=== PATIENT | female | born 1980 | race African-American/Black ===

== ENCOUNTER 2019-03-21 22:48 | Emergency (ER) | payer MEDICAID, OTHER ==
[~2019-03-21] VITALS: Ht 154.9 cm; Wt 91.8 kg
[2019-03-21 22:55] VITALS: Ht 154.9 cm; Wt 91.8 kg
[2019-03-21] MEDS ORDERED: KETOROLAC 30 MG INJ IM STA (23:29)
[2019-03-21] MEDS ORDERED: METHOCARBAMOL 750 MG TAB PO ONE (23:30)
[2019-03-22] MEDS ORDERED: CIPR500T4 PO (01:17)
[2019-03-22] MEDS ORDERED: ACET-141 PO (01:18)
--- NOTE | 2019-03-22 01:19 | ERD ---
ER Documentation Chief Complaint Chief Complaint lower abd/back pain x 1 day ROS All systems reviewed and are negative except as per history of present illness. Medications Home Meds Active Scripts Acetaminophen* (Acetaminophen*) 500 MG Extra Strength Tablet, 500 MG PO Q4H PRN for PAIN AND OR ELEVATED TEMP, #30 TAB Prov:JOSSELINE HERNANDEZ DO 03/22/19 Ciprofloxacin Hcl* (Ciprofloxacin Hcl*) 500 Mg Tablet, 500 MG PO BID for uti for 5 Days, #10 TAB Prov:JOSSELINE HERNANDEZ DO 03/22/19 Allergies Allergies: Coded Allergies: Penicillins (Verified Allergy, Unknown, sob, 03/21/19) PMhx/Soc Medical and Surgical Hx: pt denies Medical Hx, pt denies Surgical Hx Hx Alcohol Use: No Hx Substance Use: No Hx Tobacco Use: No Smoking Status: Never smoker Physical Exam Vitals Vital Signs Date Temp Pulse Resp B/P (MAP) Pulse Ox O2 O2 Flow FiO2 Time Delivery Rate 03/21/19 98.0 95 18 138/82 100 22:55 (100) Physical Exam Const: No acute distress Head: Atraumatic Eyes: Normal Conjunctiva ENT: Normal External Ears, Nose and Mouth. Neck: Full range of motion. No meningismus. Resp: Clear to auscultation bilaterally Cardio: Regular rate and rhythm, no murmurs Abd: Soft, non tender, non distended. Normal bowel sounds Skin: No petechiae or rashes Back: No midline or flank tenderness Ext: No cyanosis, or edema Neur: Awake and alert Psych: Normal Mood and Affect Result Diagram: 03/21/19 2335 03/21/19 2335 Results 24 hrs Laboratory Tests Test 03/21/19 23:35 03/21/19 23:52 White Blood Count 6.2 10^3/ul Red Blood Count 3.74 10^6/ul Hemoglobin 10.7 g/dl Hematocrit 33.1 % Mean Corpuscular Volume 88.5 fl Mean Corpuscular Hemoglobin 28.6 pg Mean Corpuscular Hemoglobin Concent 32.3 g/dl Red Cell Distribution Width 13.5 % Platelet Count 309 10^3/UL Mean Platelet Volume 9.6 fl Immature Granulocytes % 0.300 % Neutrophils % 61.5 % Lymphocytes % 28.4 % Monocytes % 8.0 % Eosinophils % 1.3 % Basophils % 0.5 % Nucleated Red Blood Cells % 0.0 /100WBC Immature Granulocytes # 0.020 10^3/ul Neutrophils # 3.8 10^3/ul Lymphocytes # 1.8 10^3/ul Monocytes # 0.5 10^3/ul Eosinophils # 0.1 10^3/ul Basophils # 0.0 10^3/ul Nucleated Red Blood Cells # 0.0 10^3/ul Urine Color YELLOW Urine Clarity SLIGHTLY CLOUDY Urine pH 6.0 Urine Specific [place] 1.015 Urine Ketones NEGATIVE mg/dL Urine Nitrite NEGATIVE mg/dL Urine Bilirubin NEGATIVE mg/dL Urine Urobilinogen NEGATIVE mg/dL Urine Leukocyte Esterase NEGATIVE Ender/ul Urine Microscopic RBC 2 /HPF Urine Microscopic WBC 2 /HPF Urine Squamous Epithelial Cells FEW /HPF Urine Mucus FEW /HPF Urine Hemoglobin 1+ mg/dL Urine Glucose NEGATIVE mg/dL Urine Total Protein 2+ mg/dl Sodium Level 141 mmol/L Potassium Level 3.3 mmol/L Chloride Level 107 mmol/L Carbon Dioxide Level 25 mmol/L Anion Gap 9 Blood Urea Nitrogen 13 mg/dl Creatinine 1.28 mg/dl Est Glomerular Filtrat Rate mL/min 47 mL/min Glucose Level 104 mg/dl Calcium Level 9.6 mg/dl Total Bilirubin 0.5 mg/dl Direct Bilirubin 0.00 mg/dl Indirect Bilirubin 0.5 mg/dl Aspartate Amino Transf (AST/SGOT) 33 IU/L Alanine Aminotransferase (ALT/SGPT) 16 IU/L Alkaline Phosphatase 78 IU/L Total Protein 7.9 g/dl Albumin 4.0 g/dl Globulin 3.90 g/dl Albumin/Globulin Ratio 1.02 Lipase 322 U/L POC Beta HCG, Qualitative NEGATIVE Current Medications Medications Dose Sig/Naomi Start Time Status Last (Trade) Ordered Route PRN Stop Time Admin Dose Reason Admin Ketorolac 30 mg ONCE STAT 03/21/19 DC 03/22/19 Tromethamine IM 23:29 00:00 (Toradol) 03/21/19 23:31 750 mg ONCE ONCE 03/21/19 DC 03/22/19 Methocarbamol PO 23:30 00:00 (Robaxin) 03/21/19 23:31 Departure Diagnosis: Primary Impression: Back pain Back pain location: back pain in unspecified location Chronicity: unspecified Back pain laterality: unspecified Qualified Codes: M54.9 - Dorsalgia, unspecified Additional Impression: Polyuria Condition: Fair Patient Instructions: Back Pain (Acute Or Chronic) Referrals: [facility] YOU HAVE RECEIVED A MEDICAL SCREENING EXAM AND THE RESULTS INDICATE THAT YOU DO NOT HAVE A CONDITION THAT REQUIRES URGENT TREATMENT IN THE EMERGENCY DEPARTMENT. FURTHER EVALUATION AND TREATMENT OF YOUR CONDITION CAN WAIT UNTIL YOU ARE SEEN IN YOUR DOCTORS OFFICE WITHIN THE NEXT 1-2 DAYS. IT IS YOUR RESPONSIBILITY TO MAKE AN APPOINTMENT FOR FOLOW-UP CARE. IF YOU HAVE A PRIMARY DOCTOR --you should call your primary doctor and schedule an appointment IF YOU DO NOT HAVE A PRIMARY DOCTOR YOU CAN CALL OUR PHYSICIAN REFERRAL HOTLINE AT IF YOU CAN NOT AFFORD TO SEE A PHYSICIAN YOU CAN CHOSE FROM THE FOLLOWING [facility] [address] [facility]. [facility] [address] [facility] [facility] [address] [facility] [facility] [address] [facility]. [facility] [address] [facility]. [facility]. [address] Additional Instructions: Call your primary care doctor TOMORROW for an appointment during the next 1-2 days.See the doctor sooner or return here if your condition worsens before your appointment time. JOSSELINE HERNANDEZ DO Mar 22, 2019 01:19
[2019-03-22 01:56] VITALS: BP 128/88; PULSE 75; RESP 18
== END 2019-03-22 01:57 | disposition home or self-care (01) ==
LOC: FTE 22:48
DX: M54.9 Dorsalgia, unspecified (principal); R35.8 Other polyuria
CPT/HCPCS: 36415; 80053; 81001; 81025; 83690; 85025; 96372; J1885; Z7502; Z7610

== ENCOUNTER 2019-05-15 19:04 | Emergency (ER) | payer OTHER ==
[~2019-05-15] VITALS: Ht 154.9 cm; Wt 93.8 kg
[~2019-05-15 19:04] MED LIST: ACET-141 PO; CIPR500T4 PO
[2019-05-15 19:07] VITALS: Ht 154.9 cm; Wt 93.8 kg
[2019-05-15] MEDS ORDERED: D-ME118S24 PO (21:47)
[2019-05-15] MEDS ORDERED: IBUP-1561 PO (21:47)
[2019-05-15] MEDS ORDERED: ACET-141 PO (21:47)
--- NOTE | 2019-05-15 21:48 | ERD ---
ER Documentation Chief Complaint Chief Complaint C/O WORSENING SORE THROAT X3 WEEKS ROS All systems reviewed and are negative except as per history of present illness. Medications Home Meds Active Scripts D-Methorphan Hb/P-Epd HCl/Bpm (Knzgwkwlcb-Qodbpvnymhy-Iy Syr) 118 Ml Syrup, 5 ML PO Q4H PRN for cough/sore throat for 10 Days, #1 BOTTLE Prov:JOSSELINE HERNANDEZ DO 05/15/19 Acetaminophen* (Acetaminophen*) 500 MG Extra Strength Tablet, 500 MG PO Q4H PRN for PAIN AND OR ELEVATED TEMP, #30 TAB Prov:JOSSELINE HERNANDEZ DO 05/15/19 Ibuprofen* (Motrin*) 400 Mg Tab, 400 MG PO Q6 PRN for PAIN, #30 TAB Prov:JOSSELINE HERNANDEZ DO 05/15/19 Acetaminophen* (Acetaminophen*) 500 MG Extra Strength Tablet, 500 MG PO Q4H PRN for PAIN AND OR ELEVATED TEMP, #30 TAB Prov:JOSSELINE HERNANDEZ DO 03/22/19 Ciprofloxacin Hcl* (Ciprofloxacin Hcl*) 500 Mg Tablet, 500 MG PO BID for uti for 5 Days, #10 TAB Prov:JOSSELINE HERNANDEZ DO 03/22/19 Allergies Allergies: Coded Allergies: Penicillins (Verified Allergy, Unknown, sob, 03/21/19) PMhx/Soc Medical and Surgical Hx: pt denies Medical Hx, pt denies Surgical Hx Hx Alcohol Use: No Hx Substance Use: No Hx Tobacco Use: No Smoking Status: Never smoker Physical Exam Vitals Vital Signs Date Temp Pulse Resp B/P (MAP) Pulse Ox O2 O2 Flow FiO2 Time Delivery Rate 05/15/19 98.1 98 21 130/94 100 19:07 (106) Physical Exam Const: No acute distress Head: Atraumatic Eyes: Normal Conjunctiva ENT: Normal External Ears, Nose and Mouth. Neck: Full range of motion. No meningismus. Resp: Clear to auscultation bilaterally Cardio: Regular rate and rhythm, no murmurs Abd: Soft, non tender, non distended. Normal bowel sounds Skin: No petechiae or rashes Back: No midline or flank tenderness Ext: No cyanosis, or edema Neur: Awake and alert Psych: Normal Mood and Affect Departure Diagnosis: Primary Impression: Sore throat Condition: Fair Patient Instructions: Self-Care for Sore Throats Referrals: [facility] YOU HAVE RECEIVED A MEDICAL SCREENING EXAM AND THE RESULTS INDICATE THAT YOU DO NOT HAVE A CONDITION THAT REQUIRES URGENT TREATMENT IN THE EMERGENCY DEPARTMENT. FURTHER EVALUATION AND TREATMENT OF YOUR CONDITION CAN WAIT UNTIL YOU ARE SEEN IN YOUR DOCTORS OFFICE WITHIN THE NEXT 1-2 DAYS. IT IS YOUR RESPONSIBILITY TO MAKE AN APPOINTMENT FOR FOLOW-UP CARE. IF YOU HAVE A PRIMARY DOCTOR --you should call your primary doctor and schedule an appointment IF YOU DO NOT HAVE A PRIMARY DOCTOR YOU CAN CALL OUR PHYSICIAN REFERRAL HOTLINE AT IF YOU CAN NOT AFFORD TO SEE A PHYSICIAN YOU CAN CHOSE FROM THE FOLLOWING [facility] [place] [address] [facility]. [facility] [address] [facility] [facility] [address] [facility]. [facility] [address] [facility] [facility] [address] [facility]. [facility]. [address] Additional Instructions: Call your primary care doctor TOMORROW for an appointment during the next 1-2 days.See the doctor sooner or return here if your condition worsens before your appointment time. JOSSELINE HERNANDEZ DO May 15, 2019 21:48
[2019-05-15 22:05] VITALS: BP 117/67; PULSE 83; RESP 16
== END 2019-05-15 22:05 | disposition home or self-care (01) ==
LOC: FTE 19:04
DX: J02.9 Acute pharyngitis, unspecified (principal)
CPT/HCPCS: 87880; Z7502; 99283